=== PATIENT | male | born 1985 | race Caucasian/White ===

== ENCOUNTER 2020-12-05 05:02 | Emergency (ER) | payer SELFPAY ==
[~2020-12-05] VITALS: Ht 177.8 cm; Wt 91.5 kg
[2020-12-05 05:15] VITALS: BP 116/90
[2020-12-05] MEDS ORDERED: CLIN300C9 PO (05:59)
[2020-12-05] MEDS ORDERED: CEPH750C9 PO (05:59)
== END 2020-12-05 06:05 | disposition home or self-care (01) ==
LOC: ER 05:02
DX: L03.116 Cellulitis of left lower limb (principal); I10 Essential (primary) hypertension; Z88.2 Allergy status to sulfonamides
CPT/HCPCS: 99283

== ENCOUNTER 2021-02-26 20:09 | Emergency (ER) | payer SELFPAY ==
[~2021-02-26] VITALS: Ht 177.8 cm; Wt 90.0 kg
[~2021-02-26 20:09] MED LIST: CEPH750C9 PO; CLIN300C9 PO
[2021-02-26 20:27] VITALS: BP 138/58
[2021-02-26] MEDS ORDERED: CLIN300C9 PO (21:55)
--- NOTE | 2021-02-26 21:55 | PHYS DOC ---
Past History Past Medical History: Anxiety, Depression, Hypertension Past Surgical History: Other Additional Past Surgical Histo: hernia repair Alcohol Use: None Adult General Chief Complaint Chief Complaint: SKIN RASH/ABSCESS HPI HPI Patient is a 35-year-old male who presents with a chief complaint of multiple skin lesions. Patient does use methamphetamine and scratches his skin quite frequently. States these lesions have been there about a week and started on his leg. States they itch and he has been scratching. States he did use methamphetamine and heroin today as well. Denies any recent traumas, travels, known ill contacts, fevers, chest pain, shortness of breath, abdominal pain, nausea, vomiting, dysuria, hematuria or blood in the stool. Denies any numbness/weakness/tingling. [place] any vesicular type lesions on the skin. Denies any history of STIs, penile discharge, scrotal swelling or pain or lesions around the penis. Review of Systems Review of Systems Review of systems otherwise unremarkable except noted in HPI Current Medications Current Medications Current Medications Medications (Trade) Dose Ordered Sig/Archie Start Time Stop Time Status Last Admin Dose Admin Ceftriaxone Sodium (Rocephin Im) 1 gm 1X ONCE 02/26/21 21:45 02/26/21 21:46 UNV Allergies Allergies Allergies Coded Allergies Type Severity Reaction Last Updated Verified Sulfa (Sulfonamide Antibiotics) Allergy Intermediate 12/05/20 Yes sulfamethoxazole Allergy Unknown 02/26/21 Yes trimethoprim Allergy Unknown 02/26/21 Yes Physical Exam Physical Exam Constitutional: Well developed, well nourished, no acute distress, non-toxic appearance. [] HENT: Normocephalic, atraumatic, bilateral external ears normal, oropharynx moist, no oral exudates, nose normal. [] Eyes: conjunctiva normal, no discharge. [] Neck: Normal range of motion, no tenderness, supple, no stridor. [] Cardiovascular: Sinus tachycardia Lungs & Thorax: Bilateral breath sounds clear to auscultation [] Abdomen: soft, no tenderness, no masses, no pulsatile masses. [] Skin: Multiple lesions across the extremities and a few on the torso of erythematous bases with scabbing in the center. Back: No tenderness, no CVA tenderness. [] Extremities: No tenderness, no cyanosis, no clubbing, ROM intact, no edema. [] Neurologic: Alert and oriented X 3, no focal deficits noted. [] Psychologic: Affect normal, judgement normal, mood normal. [] Current Patient Data Vital Signs Vital Signs Date Time Temp Pulse Resp B/P (MAP) Pulse Ox O2 Delivery O2 Flow Rate FiO2 02/26/21 20:27 99.0 148 16 138/58 98 Room Air EKG EKG [] Radiology/Procedures Radiology/Procedures [] Heart Score C/O Chest Pain: No Risk Factors: Risk Factors: DM, Current or recent (<one month) smoker, HTN, HLP, family history of CAD, obesity. Risk Scores: Risk Factors: DM, Current or recent (<one month) smoker, HTN, HLP, family history of CAD, obesity. Course & Med Decision Making Course & Med Decision Making Patient is a 35-year-old male who presents with multiple lesions on his skin Vital signs notable for sinus tachycardia. Physical exam noted above. Given patient's vital signs and amount of lesions on his body it was recommended to patient that he be admitted to the hospital for IV antibiotics, laboratory analysis, blood cultures and possible infectious disease consult. Patient stated that he will not stay in the hospital and states that if it gets worse he will come back to the emergency department and he can try antibiotics at home. Recommended against that with patient given the above clinical condition and reiterated the patient that he has multiple sites of infection and the infection can be transferred to the blood which is possible and could make him very very ill, septic, leading to severe long-term illness, disability or even . Patient stated he understood that but thinks that he will just try some antibiotics and rest at home for couple days and will come back if he gets worse. Advised to call his primary care physician or a primary care physician first thing in the morning and gave him contact information for local primary care physicians and free clinics. Strongly urged to call in the morning to get a follow-up appointment. Started on antibiotics in the emergency department. Gave strict return precautions to the ED. Patient grateful, verbalized understanding and agreed with plan of discharge. [] Dragon Disclaimer Dragon Disclaimer This electronic medical record was generated, in whole or in part, using a voice recognition dictation system. Departure Departure: Impression: Primary Impression: Skin lesions, generalized Disposition: 20 Condition: STABLE Referrals: PCP,NO (PCP) LEONARDO COVARRUBIAS MD Patient Instructions: Cellulitis, Sepsis, Adult, Substance Abuse-Brief Additional Instructions: Thank you for coming into the emergency department today and allowing us to take care of you. Please read all of the attached information very carefully to go back over the things we discussed about your diagnosis and treatment. It was recommended that you stay in the hospital for IV antibiotics and complete laboratory work-up and analysis given your multiple lesions and vital signs are concerning for serious infection including sepsis which could lead to significant long-term illnesses, disabilities and even . You stated that you did not want to stay in the hospital and wanted to try antibiotics and rest at home. Please come back to the emergency department immediately with new or concerning symptoms as we discussed. Scripts Clindamycin Hcl (CLINDAMYCIN HCL) 300 Mg Capsule 1 CAP PO Q6HRS for cellulitis for 10 Days, #40 CAP Prov: ELYSE MUNOZ MD 02/26/21 ELYSE MUNOZ MD Feb 26, 2021 21:55
[2021-02-26] MEDS ORDERED: cefTRIAXone IM 1 GM VIAL IM ONE (22:00)
[2021-02-26] MEDS ORDERED: CLINDAMYCIN HCL 150 MG CAPSULE PO ONE (22:00)
== END 2021-02-26 22:13 | disposition home or self-care (01) ==
LOC: ER 20:09
DX: L98.8 Other specified disorders of the skin and subcutaneous tissue (principal); L29.9 Pruritus, unspecified; I10 Essential (primary) hypertension; Z88.2 Allergy status to sulfonamides; Z88.1 Allergy status to other antibiotic agents
CPT/HCPCS: 96372; 99283; J0696